=== PATIENT | female | born 1950 | race Caucasian/White ===

== ENCOUNTER 2020-03-19 06:44 | Observation (INO) ==
--- NOTE | 2020-03-14 10:27 | Anesthesiology Consultation ---
Date of Service March 14, 2020 Assessment & Plan (1) Encounter for pre-operative examination: Chart Review Chart Review: Acceptable Risk for Surgery (pending DOS labs) and Patient NOT seen in Pre Admission Testing Preop labs need updated- will order PRP, CBC with diff and PT/INR/PTT for DOS. Per nursing assessment 03/14/2020, patient resides in [facility]. Travels to [facility] for medical appointments. Wears mask and social distances. Covid test 03/12/20= negative History Surgery Operation Date: 02/21/20 07:30 Proposed Procedures p Right Total Knee Arthroplasty - Tucker Ivy DO Operation Date: 03/19/20 09:05 Proposed Procedures p Right Total Knee Arthroplasty - Tucker Ivy DO Height/Weight Height: 5 ft 1 in Weight: 78.471 kg Allergies Allergy/AdvReac Type Severity Reaction Status Date / Time Penicillins Allergy Unknown PT UNSURE Verified 03/14/20 08:36 Sulfa (Sulfonamide Allergy Unknown PT UNSURE Verified 03/14/20 08:36 Antibiotics) Rollgma-Yin-Kkx Reductase AdvReac Unknown Increased Verified 03/14/20 08:36 Inhibitor liver enzymes Medications Home Medications Medication Instructions Recorded Confirmed Last Taken aspirin 81 mg tablet,delayed 81 mg PO QAM 09/13/19 03/14/20 Unknown release ezetimibe 10 mg tablet 10 mg PO QAM 09/13/19 03/14/20 Unknown levothyroxine 112 mcg capsule 100 mcg PO QAM 09/13/19 03/14/20 Unknown metformin 1,000 mg tablet 1,000 mg PO QAM 09/13/19 03/14/20 Unknown polyethylene glycol 3350 17 17 gm PO QAM 09/13/19 03/14/20 Unknown gram/dose oral powder ibuprofen 400 - 600 mg PO UD PRN 11/03/19 03/14/20 Unknown meloxicam 15 mg tablet 15 mg PO DAILY #30 tab 11/09/19 03/14/20 Unknown benzonatate 200 mg PO BID PRN 03/14/20 03/14/20 Unknown Past Medical History Medical History Constipation Diabetes History of high cholesterol History of skin cancer RECENT, NOSE, RESECTED Hypothyroidism Osteoarthritis Past Surgical History Surgical History H/O oophorectomy History of section X4 History of colonoscopy History of esophagogastroduodenoscopy (EGD) History of hysterectomy Social History Smoking Status: Never smoker Do You Dip or Chew Tobacco: No Hx Alcohol Use: Yes Alcohol type: hard liquor alcohol intake frequency: a few times a week Hx Substance Use: No substance use type: does not use Testing Electrocardiogram Date: 11/09/19 Findings: + NSR @ (67bpm) Poor R wave progression, consider anterior NM vs lead placement vs LVH. (pt with good functional status at [facility] appt in October 2019 with no chest pain or NUÑEZ with activity) Chest X-Ray Date: 11/09/19 Findings: + NAD and + cardiomegaly (mild) Mild descending thoracic aortic tortuosity. Echocardiogram Date: 04/06/18 EF: 65-70% Normal LV size and systolic function. Normal RV size and grossly normal function. Grade 1 diastolic dysfunction. Stress Test Date: 04/06/18 Type: nuclear Resting EF: 83% No ischemia or infarction seen on SPECT imaging. Probability of CAD and ischemia relatively low. The SPECT perfusion images are considered to be within normal limits. LV wall motion is normal. EKG- non diagnostic.
--- NOTE | 2020-03-15 08:33 | History & Physical Report ---
Date of Service March 15, 2020 Assessment & Plan (1) Osteoarthritis of right knee: We will proceed with a right total knee arthroplasty. Postoperatively she will be placed on aspirin for DVT prophylaxis and kept overnight in the hospital for postoperative medical management. She plans to go to outpatient physical therapy at [facility] upon discharge. Trista is a low risk for joint replacement surgery without any major comorbidities. Present on Admission?: Yes History of Present Illness Chief Complaint: Primary osteoarthritis of the right knee Primary Care Provider: Damir Weston is a pleasant 69-year-old female who is been dealing with chronic increasing right knee pain. X-rays and clinical examination have been diagnostic for advanced osteoarthritis of the right knee. After failing extensive conservative treatment, she has elected to proceed with a right total knee arthroplasty. Allergies Allergy/AdvReac Type Severity Reaction Status Date / Time Penicillins Allergy Unknown PT UNSURE Verified 03/14/20 08:36 Sulfa (Sulfonamide Allergy Unknown PT UNSURE Verified 03/14/20 08:36 Antibiotics) Gbtoxwc-Aar-Ati Reductase AdvReac Intermediate Increased Verified 03/14/20 14:35 Inhibitor liver enzymes Home Medications Home Medications Medication Instructions Recorded Confirmed Type aspirin 81 mg tablet,delayed 81 mg PO QAM 09/13/19 03/14/20 History release ezetimibe 10 mg tablet 10 mg PO QAM 09/13/19 03/14/20 History levothyroxine 112 mcg capsule 100 mcg PO QAM 09/13/19 03/14/20 History metformin 1,000 mg tablet 1,000 mg PO QAM 09/13/19 03/14/20 History polyethylene glycol 3350 17 17 gm PO QAM 09/13/19 03/14/20 History gram/dose oral powder ibuprofen 400 - 600 mg PO UD PRN 11/03/19 03/14/20 History meloxicam 15 mg tablet 15 mg PO DAILY #30 tab 11/09/19 03/14/20 Rx benzonatate 200 mg PO BID PRN 03/14/20 03/14/20 History Past Med/Surg History Medical History Constipation Diabetes History of high cholesterol History of skin cancer RECENT, NOSE, RESECTED Hypothyroidism Osteoarthritis Surgical History H/O oophorectomy History of section X4 History of colonoscopy History of esophagogastroduodenoscopy (EGD) History of hysterectomy Social History Preferred Language: Cambodian Communication Ability: Effective Visual Impairment: No Limitations Hearing Ability: Normal Inventory Clerk Required: No Beliefs That Will Affect Care: None marital status: Current Living Situation: Spouse current occupational status: retired Other Information That Helps Us Care for You: No Feels Safe at Home: Yes Safety Concerns: Feels Safe At This Time Smoking Status: Never smoker Do You Dip or Chew Tobacco: No ; Second Hand Exposure: No ; Tobacco Cessation Education Requested by Patient: No Hx Alcohol Use: Yes Alcohol type: hard liquor Hx Substance Use: No Review of Systems Review of Systems: All systems reviewed & are unremarkable except as noted in HPI & below Physical Exam Constitutional: WD/WN, vitals as above Eyes: PERRL, conjunctivae normal, anicteric sclerae ENMT: external ear and nose normal, oropharynx normal Neck: trachea midline, no thyromegaly Respiratory: normal respiratory effort Cardiovascular: RRR, no murmur, no edema Gastrointestinal (Abdomen): normal bowel sounds, soft, nontender, no hepatosplenomegaly Musculoskeletal: On physical examination of the right knee there is a trace effusion. There is near full range of motion and no evidence of instability. There is significant tenderness palpation along the medial and lateral joint lines and over the distal femoral condyles. Psychiatric: A+Ox3, euthymic affect Results & Data Results & Data ([facility]) Diagnostic Findings Radiographs of the right knee demonstrate advanced osteoarthritis with joint space narrowing osteophyte formation and vnrj-ts-picj articulation. PG Care Time/CCT Total # of Minutes Spent Total Time Spent with Patient: Total time spent is greater than 50% in coordination of care (as documented) at patient's floor/unit and/or counseling patient: Coding Level of Care Code 48670 Initial Inpt Care Lvl 3 Diagnoses Osteoarthritis of right knee M17.11
[~2020-03-19 06:44] MED LIST: ACETAMINOPHEN 500 MG TAB PO SCH; CEFAZOLIN 1000MG 1,000 MG/7.5 ML SYR IV SCH; FAMOTIDINE 20 MG TAB PO SCH; GABAPENTIN 300 MG CAP PO SCH; LR 500ML BOLUS, THEN 15ML/HR IV SCH; LR 60ML/HR IV SCH; ROPIVACAINE 0.5% HCL/PF 150 MG, BUPIVACAINE 0.5% MPF 30 ML, EPINEPHrine 30MG/30ML (OR U... INSTIL SCH; TRANEXAMIC ACID 1,000 MG **IV Intra-op IV SCH; TRANEXAMIC ACID 1,000 MG **IV Pre-op IV SCH; dexAMETHasone 4 MG TAB PO SCH
[2020-03-19 07:32] LABS: Basophils # (auto) 0.04 K/uL (0-0.2); Basophils % (auto) 0.4 %; Eosinophils # (auto) 0.19 K/uL (0-0.5); Eosinophils % (auto) 1.9 %; Hematocrit (blood only) 40.9 % (37-47); Hemoglobin 13.3 g/dL (12.0-16.0); Immature Granulocytes # (auto) 0.03 K/uL (0.00-0.02); Immature Granulocytes % (auto) 0.3 %; Lymphocytes # (auto) 3.04 K/uL (1.2-3.4); Lymphocytes % (auto) 29.7 %; Mean Corpuscular Hemoglobin 28.2 pg (25-34); Mean Corpuscular Volume 86.7 fL (80-100); Mean Platelet Volume 10.5 fL (7.4-10.4); Monocytes # (auto) 0.67 K/uL (0.11-0.59); Monocytes % (auto) 6.5 %; Neutrophils # (auto) 6.27 K/uL (1.4-6.5); Neutrophils % (auto) 61.2 %; Platelet Count 280 K/uL (130-400); RDW Standard Deviation 44.2 fL (36.4-46.3); Red Blood Count 4.72 M/uL (4.2-5.4); White Blood Count 10.24 K/uL (4.8-10.8)
[2020-03-19] MEDS ORDERED: LIDOCAINE HCL 2% 2 ML VIAL/AMP(20MG/ML) INFIL ONE (07:35)
[2020-03-19] MEDS ORDERED: MIDAZOLAM HCL 1 MG/ML 2ML VIAL ONE ×2 (07:35)
[2020-03-19] MEDS ORDERED: PROPOFOL IV EMULSION 10 MG/ML 20 ML VIAL IV ONE (07:35)
[2020-03-19 07:43] LABS: Partial Thromboplastin Ratio 0.9; Partial Thromboplastin Time 24.7 Seconds (21.0-31.0); Prothrombin Time 10.8 Seconds (9.0-12.0)
[2020-03-19 07:44] LABS: Mean Corpuscular Hgb Conc 32.5 g/dL (32-36)
[2020-03-19] MEDS ORDERED: BUPIVACAINE/EPINEPHRINE 0.25% 1:200,000 30 ML VIAL ONE (07:46)
[2020-03-19] MEDS ORDERED: DEXAMETHASONE SOD INJ 4 MG/ML VIAL ONE (07:46)
[2020-03-19] MEDS ORDERED: BUPIVACAINE 0.5 % 5 MG/1 ML PF 10ML VIAL ONE (07:47)
[2020-03-19 07:53] LABS: Creatinine Clr Calc Pharmacy 64.5 ml/min; Est GFR (African American) 90.7; Est GFR (Non-African American) 78.2; Potassium 3.8 mmol/L (3.5-5.1)
[2020-03-19] MEDS ORDERED: CEFAZOLIN 2000MG 2,000 MG/15 ML SYR IV ONE (08:36)
--- NOTE | 2020-03-19 08:45 | History & Physical Bridge Note ---
Date of Service March 19, 2020 History & Physical Bridge Note I have examined the patient, reviewed the History & Physical and in the interval since the performance of the History & Physical I have noted the following changes of clinical significance: no changes noted
[2020-03-19] MEDS ORDERED: fentaNYL citrate 100 MCG/2 ML VIAL ONE (08:46)
[2020-03-19] MEDS ORDERED: CEFAZOLIN 2,000 MG/15 ML IV PUSH IV ONE (08:50)
[2020-03-19] MEDS ORDERED: ORTHO JOINT ANESTHETIC ONE (08:51)
[2020-03-19] MEDS ORDERED: ePHEDrine sulfate 50 MG/ML AMP IV PRN (09:22)
[2020-03-19] MEDS ORDERED: fentaNYL citrate 100 MCG/2 ML VIAL IV PRN (09:22)
[2020-03-19] MEDS ORDERED: ATROPINE SULFATE 0.1 MG/ML 10ML SYR IV PRN (09:22)
--- NOTE | 2020-03-19 10:25 | Operative Report ---
PG Post Operative Report Pre & Post Diagnosis Operation Date: 02/21/20 07:30 <No data on this case meets the specified criteria> Operation Date: 03/19/20 09:05 Pre-Op Diagnosis: Right Knee Advanced Osteoarthritis Post-Op Diagnosis: Right Knee Advanced Osteoarthritis I identified the patient and participated in the time-out.: Yes Procedure Operation Date: 02/21/20 07:30 <No data on this case meets the specified criteria> Operation Date: 03/19/20 09:05 Actual Procedures p Right Total Knee Arthroplasty(Right) - Tucker Ivy DO Surgeon Tucker Ivy DO Qa Tech Tucker Riggins PAC Estimated Blood Loss 10 Findings Consistent with Post-Op Diagnosis Specimens Right femoral and tibial bone Complications none Disposition Disposition: Recovery Room Indications Trista is a pleasant 69-year-old female who presented my office with complaints of chronic increasing right knee pain. X-rays and clinical examination were diagnostic for advanced osteoarthritis of the right knee. After failing conserv ative treatment, she elected proceed with a right total knee arthroplasty. Description of Procedure Implants used: I used a Cortes Persona total knee arthroplasty system with a size 6 standard femur, D tibia, 29 patella, and a size 11 medial congruent polyethylene bearing. All components were cemented in place with Palacos G cement. Trista arrived [facility] for the above procedure. She was seen in the preoperative holding area and the operative extremity was identified and signed. She was given a preoperative antibiotic, TXA, a spinal anesthetic and an adductor nerve block. She was taken back to the operating room and laid on the table in supine position. She was given basic sedation. The operative knee was then prepped and draped in sterile fashion. A timeout was done, and the patient and the operative extremity was properly identified. A midline incision was made directly over the patella. Dissection was taken down to the extensor mechanism. A subvastus arthrotomy was used. The medial retinaculum was released and the fat pad was mostly excised. The knee was flexed and the ACL, PCL, and meniscus were removed. A drill was sent down the center of the femoral canal followed by an intramedullary thomas. Off that thomas a distal femoral cutting block was placed. 9 mm was resected off the distal femur at 5 of valgus. A posterior referencing AP sizing guide was then placed on the distal femur. The femur measured to be a size 6. 2 drill holes were placed in 3 of external rotation. A 4-in-1 cutting block was then impacted into place. Anterior, posterior, and chamfer cuts were then made. The proximal tibia was then exposed. An external tibial alignment guide was placed. A tibial cut guide was then anchored in place to resect 2 mm off the low medial side. The proximal tibia was then resected. The tibia measured to be a size D. The tibial plate was then placed in the appropriate rotation and the tibia was drilled and punched. The posterior aspect of the knee was then opened up and any additional meniscus fragments and osteophytes were removed. Trial components were then placed. I used a size 11 medial congruent polyethylene insert. The knee was brought through a full range of motion and felt to be stable. The patella was then everted and 8 mm was resected off the posterior aspect of the patella. The patella measured to be a size 29. 3 peg holes were then drilled. A trial patella was placed. The knee was once again brought through a full range of motion and felt to be stable. Trial components were then removed. The surrounding soft tissues were injected with 100 cc of an orthopedic pain control cocktail. All components were then cemented into place with Palacos G cement. The final polyethylene insert was then snapped into place and the anterior bar was locked. Once cement was dry the tourniquet was deflated. Hemostasis was obtained. A dilute betadyne lavage was then done for 3 minutes. The joint was then irrigated with normal saline solution. The subvastus arthrotomy was then closed with #1 Vicryl suture. The skin was closed with 2-0 Vicryl, 3-0V lock suture, and chayo. A soft compressive dressing was placed. She was then transferred to a hospital bed and taken to the postanesthesia care unit in stable condition. She tolerat ed the procedure well. Tucker Riggins PA-C, was present for the entire procedure. He was critical for patient positioning, prepping, draping, retraction exposure, wound closure and application of sterile dressing. I attest to the content of the Intraoperative Record and any orders documented therein. Any exceptions are noted below.
--- NOTE | 2020-03-19 11:06 | XRay Report ---
XR knee RT 1 or 2V routine CLINICAL HISTORY: Postoperative evaluation. COMPARISON: None FINDINGS: Alignment of the total right knee arthroplasty is anatomic. There is no fracture or unexpe cted radiopaque foreign body. There are skin chayo. IMPRESSION: Expected findings following total right knee arthroplasty. ACT 112: Negative or not required by law. Electronically signed by: Barrie Monique M.D. 03/19/2020 11:05 AM
--- NOTE | 2020-03-19 11:55 | Anesthesiology Progress Note ---
Date of Service March 19, 2020 Anesthesia Post Procedure Vital Signs Vital Signs: Temp Pulse Pulse Resp BP BP Pulse Ox 03/19/20 11:45 81 18 111/66 94 03/19/20 11:35 85 20 127/66 92 03/19/20 11:25 93 H 19 114/72 92 03/19/20 11:15 36.8 C 90 20 124/66 93 03/19/20 11:05 89 19 111/62 98 03/19/20 10:55 98 H 19 125/66 99 03/19/20 10:45 88 17 117/55 L 98 03/19/20 10:38 37.1 C 89 19 99/53 L 96 03/19/20 08:21 37 C 84 18 169/101 H 100 03/19/20 07:36 36.8 C 84 18 196/81 H 99 Pain Intensity Right Knee: Pain Intensity: 8 Transfer of Care Handoff Completed per policy Notes Mental Status: alert / awake / arousable Patient Amnestic to Procedure: Yes Nausea / Vomiting: adequately controlled Pain: adequately controlled Airway Patency, RR, SpO2: stable & adequate BP & HR: stable & adequate Hydration State: stable & adequate Neuraxial Anesthesia: was administered and sensory block is resolving Anesthetic Complications: no major complications apparent and Pt Satisfied with anesthetic care
[2020-03-19] MEDS ORDERED: ONDANSETRON INJ 2 MG/ML 2 ML VIAL IV PRN (12:02)
[2020-03-19] MEDS ORDERED: METOCLOPRAMIDE HCL INJ 5 MG/ML 2 ML VIAL IV PRN (12:02)
[2020-03-19] MEDS ORDERED: bisacodyL 10 MG SUPP PR PRN (12:02)
[2020-03-19] MEDS ORDERED: MAGNESIUM HYDROXIDE SUSP 30 ML UDC PO PRN (12:02)
[2020-03-19] MEDS ORDERED: NALOXONE HCL 0.4 MG/1 ML VIAL/CARP IV PRN (12:02)
[2020-03-19] MEDS ORDERED: BENZONATATE 100 MG CAPSULE PO PRN (12:02)
[2020-03-19] MEDS: ACETAMINOPHEN 500 MG TAB PO SCH ×2 (13:47→21:11)
[2020-03-19] MEDS: SODIUM CHLORIDE 0.9% 1000ML 1,000 ML IV SCH ×2 (13:47→21:18)
[2020-03-19] MEDS: KETOROLAC TROMETHAMINE 15 MG/ML VIAL IV SCH ×3 (13:47→23:46)
[2020-03-19] MEDS: CEFAZOLIN: ALLERGY NOTED TO ORDERED MEDICATION SCH ×2 (16:02→16:03)
[2020-03-19] MEDS: CEFAZOLIN 2000MG 2,000 MG/15 ML SYR IV SCH (17:38)
[2020-03-19] MEDS ORDERED: GLUCOSE 10 TABS/TUBE PO PRN (18:30)
[2020-03-19] MEDS ORDERED: GLUCOSE 40% GEL 15 GM TUBE PO PRN (18:30)
[2020-03-19] MEDS ORDERED: GLUCAGON FOR INJ 1 MG VIAL IM PRN (18:30)
[2020-03-19] MEDS ORDERED: CARBOHYDRATES FOR HYPOGLYCEMIA PO PRN (18:30)
[2020-03-19] MEDS ORDERED: DEXTROSE 50% 50 ML SYRINGE IV PRN (18:30)
[2020-03-19] MEDS ORDERED: PHARMACY GLYCEMIC MGMT CONSULT PRN (18:33)
[2020-03-19] MEDS: INSULIN ASPART 100 UNITS/ML 3 ML PEN SC SCH ×3 (18:36→23:48)
[2020-03-19] MEDS: POLYETHYLENE (MIRALAX) 17 GM PACK PO PRN (19:20)
--- NOTE | 2020-03-19 19:29 | Pharmacy Report ---
Glycemic Control Consultation - Date of Service March 19, 2020 - Scope Scope: Glycemic Pharmacist consulted for glycemic control and to write orders per [facility] inpatient glycemic control protocol. - Objective Weight: 73.652 kg Accuchecks BSG (last 24hrs): 03/19/20 03/19/20 03/19/20 07:19 07:22 10:38 Glucose 114 H POC Glucose 122 H 129 H 03/19/20 03/19/20 03/19/20 12:14 17:06 17:08 Glucose POC Glucose 136 H 434 H* 266 H 03/19/20 17:10 Glucose POC Glucose 256 H Laboratory Data (last 24hrs): 03/19/20 07:22 Potassium 3.8 Carbon Dioxide 26 Anion Gap 9.0 Creatinine 0.77 Est Cr Clr Drug Dosing 64.5 - Recent Pertinent Medications Outpatient Anti-diabetic Regimen: * Metformin 1000 mg PO QAM * A1c = 5.5% on 11/09/2019 Risk Factors for Insulin Resistance: * Steroids: * Dexamethasone 8 mg PO Pre-op * Dexamethasone 4 mg topically * Dexamethasone 8 mg PO x 1 tomorrow morning * Recent Surgery: * POD #0 R TKA * Diet: * T2DM - Assessment & Plan Assessment & Plan: ASSESSMENT: * 69 yo F who is POD #0 s/p right total knee arthroplasty. Pharmacy is consulted for glycemic management. Patient's T2DM is well-controlled as an outpatient on Metformin monotherapy based upon October A1c. A repeat A1c has been ordered per protocol for tomorrow morning. * Pt is maintained on oral antidiabetic agents as an outpatient * Oral agents are not recommended for inpatient use d/t drug interactions, changing PO intake, and difficulty titrating for acute hyper/hypoglycemia. ADA recommends re-initiating outpatient oral agents 1-2 days prior to discharge if/when appropriate if they were held on admission. Will hold oral agents for admission and utilize SQ basal bolus insulin regimen which is the recommended regimen for inpatient glycemic control. * Patient received 8 mg of PO Dexamethasone this morning prior to surgery. She is also scheduled to get another 8 mg PO tomorrow morning. * Patient is ordered a T2DM diet. Her pre-op BSG was 122 mg/dL. Her post-op BSG was 136 mg/dL. At dinner time, her BSG was initially 434 mg/dL with repeats of 266 and 256 mg/dL. * Dexamethasone will mostly effect post-prandial BSGs and it's effects could last up to 48 hours. Given dexamethasone dose this morning and tomorrow morning, along with a diet being ordered, and post-op hyperglycemia: will order a high dose, weight-based, basal-bolus regimen. * ADA & AACE recommend a goal blood sugar range 140-180 mg/dl for the majority of critically ill & non-critically ill patients. However, more stringent targets may be selected in individual cases. Will utilize more stringent goal of 110-140mg/dl based on patient age & comorbidities. Additionally, tighter glycemic control is warranted to facilitate wound/infection healing. PLAN FOR INPATIENT GLYCEMIC CONTROL: * Holding outpatient oral diabetes medications * Basal insulin * Lantus 36 units SQ x 1 this evening followed by 10-20 units per scale SQ BID starting tomorrow AM (see eMAR) * Bolus insulin * NovoLog per scale ACHS or Q6hrs while NPO * Goal Range: Low 110 mg/dL - High 140 mg/dL * Correction Factor: 20 mg/dL/unit * Nutritional / Prandial insulin per carb ratio of 1 unit per 7 grams CHO consumed * Please note that the plan above was derived based on current level of insulin resistance and hospital stress. These recommendations are appropriate for inpatient admission only. Plan of care upon discharge will need to be reassessed to avoid potential outpatient hypo/hyperglycemia. Thank you.
[2020-03-19] MEDS ORDERED: SENNA 8.6 MG TAB PO SCH (21:00)
[2020-03-19] MEDS ORDERED: INSULIN GLARGINE SOLOSTAR 100 UNITS/ML 3 ML PEN SC SCH ×2 (21:00→21:15)
[2020-03-19] MEDS: DOCUSATE SODIUM 100 MG CAP PO SCH (21:10)
[2020-03-19] MEDS: ASPIRIN 81 MG ECTAB PO SCH (21:10)
[2020-03-20] MEDS: CEFAZOLIN 2000MG 2,000 MG/15 ML SYR IV SCH (00:30)
[2020-03-20] MEDS: INSULIN ASPART 100 UNITS/ML 3 ML PEN SC SCH ×2 (04:35→09:23)
[2020-03-20] MEDS: ACETAMINOPHEN 500 MG TAB PO SCH (05:53)
--- NOTE | 2020-03-20 06:29 | Orthopedic Progress Note ---
Date of Service March 20, 2020 Assessment & Plan (1) Status post right knee replacement: Overall she is doing very well. She is not having much pain in the right knee. She will be seen by physical therapy this morning for ambulation and range of motion exercises. She is on aspirin for DVT prophylaxis. She can be discharged home later today. She will follow-up with orthopedics in 2 weeks. Present on Admission?: Yes Subjective Trista was seen and examined at bedside this morning. Overall she is doing very well. She is not having much pain in the right knee. She was able to get some sleep last night. She has been up and ambulating to the bathroom. She has no complaints. Physical Exam Musculoskeletal: On physical examination of the right knee, the dressing is clean and dry. She has active dorsiflexion and plantarflexion of her right ankle. Results & Data ([facility]) Vital Signs (Past 12 Hours) Vital Signs Temp Pulse Resp BP Pulse Ox 03/20/20 03:58 36.4 C L 74 16 148/81 H 97 03/19/20 22:52 36.7 C 66 16 144/67 H 96 03/19/20 20:20 36.6 C 86 18 160/79 H 95 Diagnostic Findings Postoperative x-rays of the right knee show the prosthesis to be in anatomic alignment without any evidence of fracture, dislocation, or loosening. PG Care Time/CCT Total # of Minutes Spent Total Time Spent with Patient: Total time spent is greater than 50% in coordination of care (as documented) at patient's floor/unit and/or counseling patient: Coding Level of Care Code None Diagnoses Status post right knee replacement Z96.651
[2020-03-20] MEDS ORDERED: LEVOTHYROXINE SODIUM 100 MCG TABLET PO SCH (06:30)
[2020-03-20] MEDS: KETOROLAC TROMETHAMINE 15 MG/ML VIAL IV SCH ×2 (06:31→11:40)
--- NOTE | 2020-03-20 06:31 | Discharge Summary ---
Date of Service March 20, 2020 Admission HPI Per Admitting Provider Trista is a pleasant 69-year-old female who is been dealing with chronic increasing right knee pain. X-rays and clinical examination have been diagnostic for advanced osteoarthritis of the right knee. After failing exte nsive conservative treatment, she has elected to proceed with a right total knee arthroplasty. Principal Diagnosis Right knee replacement Discharge Data Allergies Allergy/AdvReac Type Severity Reaction Status Date / Time Penicillins Allergy Unknown PT UNSURE Verified 03/19/20 07:30 Sulfa (Sulfonamide Allergy Unknown PT UNSURE Verified 03/19/20 07:30 Antibiotics) Opnbexx-Rci-Clu Reductase AdvReac Intermediate Increased Verified 03/19/20 07:30 Inhibitor liver enzymes Consultations 03/19/20 12:02 Consult Case Management - Discharge Planning Routine Procedures Performed Operation Date: 02/21/20 07:30 <No data on this case meets the specified criteria> Operation Date: 03/19/20 09:05 Actual Procedures p Right Total Knee Arthroplasty(Right) - Tucker Ivy DO Ordered Studies 03/19/20 05:00 US - OR guided needle placemen Routine Hospital Course (1) Status post right knee replacement: On March 19, 2020 Trista arrived at [facility] and underwent a right total knee arthroplasty without complication. She had a spinal anesthetic. Postoperatively she was started on aspirin for DVT prophylaxis and transferred to the general orthopedic floors. Her hospital course was uneventful. On postop day #1 her H&H was stable and her pain was well controlled. She was able to participate well with physical therapy doing ambulation and range of motion exercises. She was then discharged home. She will follow-up with orthopedics in 2 weeks. Total Time Total Time Spent Total Time Spent (In Minutes): 20 Discharge Plan Discharge Items Patient Disposition: Home - Home Health Services Reason For Visit: RIGHT KNEE DEGENERATIVE JOINT DISEASE Discharge Diagnosis: Right total knee replacement Activity: As commented below Non-emergency contact: Surgeon Call non-emergency contact if: your wound has increased redness and your wound has increased drainage Follow-up/Referrals: Damir Riojas [Primary Care Provider] - Diet: Carb Consistent or DM2 Addtl Attending Provider Instructions: Activity and Therapy Recommendations: * If you are using [facility] then therapy will be provided at your home until they feel you have accomplished all of your goals. * If you are using [facility] then Physical Therapy will be provided until they feel you are ready to start Outpatient Physical Therapy. * If you are not using home therapy then Outpatient Physical Therapy should start about 3-5 days from your day of surgery. Therapy will last about 6-10 weeks * It is important not to put a pillow under your knee when you are relaxing or sleeping. It is just as important to make sure you are getting your knee perfectly straight as it is to regain your knee bend. * You were shown a series of exercises in the hospital. Do these exercises three times each day including the exercises you were shown in physical therapy. * Get up and walk several times each day. For the first four weeks, try not to stand or walk for more than one hour at a time. If you do stand or walk for more than one hour, you will not hurt anything, but your leg will likely swell. * As you feel comfortable, you may change from the walker or crutches to a cane and then to independent walking. Medications: * Narcotic You will likely be sent home from the hospital with a prescription for the narcotic pain medication that worked best throughout your stay. * Aspirin Most patients will be required to take Aspirin 81mg twice a day for 6 weeks after surgery. This is obtained [id number] and a prescription is not necessary. * Other medications may be prescribed for specific circumstances. If you have any questions, please call the office at . * Resume previous home medications unless otherwise instructed TEDs/Elastic Stockings: The white elastic stockings help limit swelling and prevent blood clots from forming in your legs.~ The more you wear them, the more they work. Wear them for six weeks. Dressing Care: Leave the Silverlon dressing in place for 7 days. After 7 days you may remove the plastic dressing. If the incision is not draining then you may leave the chayo open to air. If there is a little bit of drainage or if the chayo are getting stuck on your clothing then cover the incision with a dry dressing. The chayo will be removed at your 2 week follow-up appointment. Showering: You may shower with the Silverlon dressing in place. Let the shower spray hit the other shoulder. You can pat the plastic dry. If the dressing becomes wet underneath the plastic then simply remove the dressing. Keep the incision dry until you are 7 days out from the day of surgery. At that time you can shower with the chayo exposed. Let the soapy shower water run over the chayo and pat them dry. Do not scrub or soak the incision. Things To Watch For: * Drainage from the incision site that occurs more than one week after your surgery. * Increased redness at the incision site. * Fever above 102 degrees Fahrenheit. * Unusual chest pain or shortness of breath. * Call [facility] at with any of the above problems Follow-Up Visit: Follow-up with Dr. Ivy's PA (Tucker Riggins) 2-3 weeks after your day of surgery. He will remove your chayo and answer any questions. If you have any additional questions or concerns, Dr Ivy is usually in the office at the same time and will be available An appointment was probably scheduled when you signed-up for surgery in the office. If you have any questions call Office Instructions: More detailed instructions as well as Frequently Asked Questions were provided in a folder by our office when you signed-up for surgery. Please review these instructions when you get home. If you have any further questions or concerns, please feel free to call the office at [phone] Pending Studies at Discharge: No Stand-Alone Forms: [facility], Smoking Cessation Medications and DC Order Prescriptions: New tramadol 50 mg tablet 50 mg PO Q6H PRN (Reason: pain) Qty: 30 RF: 0 Continued levothyroxine 112 mcg capsule 100 mcg PO QAM RF: 0 metformin 1,000 mg tablet 1,000 mg PO QAM RF: 0 ezetimibe [Zetia] 10 mg tablet 10 mg PO QAM RF: 0 polyethylene glycol 3350 [Miralax] 17 gram/dose powder 17 gm PO QAM RF: 0 meloxicam [Mobic] 15 mg tablet 15 mg PO DAILY Qty: 30 RF: 3 ibuprofen 400 mg Tablet 400 - 600 mg PO UD PRN (Reason: Pain) RF: 0 benzonatate 200 mg Capsule 200 mg PO BID PRN (Reason: Cough) RF: 0 Changed aspirin [Adult Aspirin Regimen] 81 mg tablet,delayed release (DR/EC) 81 mg PO BID 42 Days Qty: 0 RF: 0 Discharge Orders: Discharge Order (Routine); Ordered 03/20/20 Ordered By: Tucker Ivy Admission Data Admit Date/Time: 03/19/20 10:39 Attending Provider: Tucker Ivy Admit Provider: Tucker Ivy Primary Care Provider: Damir Riojas Coding Level of Care Code D/C Day Management <30 mins Diagnoses Status post right knee replacement Z96.651
[2020-03-20 06:56] LABS: Estimated Average Glucose 120 mg/dl; Hemoglobin A1C 5.8 % (4.5-5.6)
[2020-03-20 06:59] LABS: Hematocrit (blood only) 31.2 % (37-47); Hemoglobin 10.3 g/dL (12.0-16.0); Mean Corpuscular Hemoglobin 29.2 pg (25-34); Mean Corpuscular Volume 88.4 fL (80-100); Mean Platelet Volume 10.8 fL (7.4-10.4); Platelet Count 211 K/uL (130-400); RDW Coefficient of Variation 13.8 % (11.5-14.5); RDW Standard Deviation 44.2 fL (36.4-46.3); Red Blood Count 3.53 M/uL (4.2-5.4); White Blood Count 14.34 K/uL (4.8-10.8)
[2020-03-20 07:05] LABS: Calcium 9.2 mg/dl (8.5-10.1); Creatinine Clr Calc Pharmacy 78.8 ml/min; Est GFR (African American) 106.5; Est GFR (Non-African American) 91.9; Potassium 3.9 mmol/L (3.5-5.1)
[2020-03-20] MEDS ORDERED: dexAMETHasone 4 MG TAB PO SCH (08:00)
--- NOTE | 2020-03-20 08:08 | Anesthesiology Progress Note ---
Date of Service March 20, 2020 Anesthesia Post Procedure Vital Signs Vital Signs: Temp Pulse Pulse Pulse Resp BP BP 03/20/20 07:08 36.5 C 51 L 18 137/76 03/20/20 03:58 36.4 C L 74 16 148/81 H 03/19/20 22:52 36.7 C 66 16 144/67 H 03/19/20 20:20 36.6 C 86 18 160/79 H 03/19/20 15:22 36.7 C 85 18 122/76 03/19/20 14:09 36.6 C 80 18 136/75 03/19/20 13:54 36.4 C L 71 18 146/78 H 03/19/20 13:23 36.7 C 77 18 117/67 03/19/20 12:29 79 16 125/76 03/19/20 12:00 36.7 C 80 18 124/66 03/19/20 11:55 36.8 C 81 20 114/57 L 03/19/20 11:45 81 18 111/66 03/19/20 11:35 85 20 127/66 03/19/20 11:25 93 H 19 114/72 03/19/20 11:15 36.8 C 90 20 124/66 03/19/20 11:05 89 19 111/62 03/19/20 10:55 98 H 19 125/66 03/19/20 10:45 88 17 117/55 L 03/19/20 10:38 37.1 C 89 19 99/53 L 03/19/20 08:21 37 C 84 18 169/101 H Pulse Ox 03/20/20 07:08 97 03/20/20 03:58 97 03/19/20 22:52 96 03/19/20 20:20 95 03/19/20 15:22 97 03/19/20 14:09 96 03/19/20 13:54 97 03/19/20 13:23 95 03/19/20 12:29 96 03/19/20 12:00 96 03/19/20 11:55 93 03/19/20 11:45 94 03/19/20 11:35 92 03/19/20 11:25 92 03/19/20 11:15 93 03/19/20 11:05 98 03/19/20 10:55 99 03/19/20 10:45 98 03/19/20 10:38 96 03/19/20 08:21 100 Pain Intensity Right Knee: Pain Intensity: 8 Notes Mental Status: alert / awake / arousable and participated in evaluation Nausea / Vomiting: adequately controlled Pain: adequately controlled Airway Patency, RR, SpO2: stable & adequate BP & HR: stable & adequate Hydration State: stable & adequate Neuraxial Anesthesia: was administered and sensory block resolved
[2020-03-20] MEDS: POLYETHYLENE (MIRALAX) 17 GM PACK PO PRN (08:31)
[2020-03-20] MEDS: ASPIRIN 81 MG ECTAB PO SCH (08:32)
[2020-03-20] MEDS: DOCUSATE SODIUM 100 MG CAP PO SCH (08:32)
[2020-03-20] MEDS ORDERED: INSULIN GLARGINE SOLOSTAR 100 UNITS/ML 3 ML PEN SC SCH ×2 (09:00→21:00)
[2020-03-20] MEDS ORDERED: MULTIVITAMIN TAB PO SCH (09:00)
[2020-03-20] MEDS ORDERED: EZETIMIBE 10 MG TABLET PO SCH (09:00)
== END 2020-03-20 13:12 | disposition home or self-care (01) ==
LOC: 3E 06:44 → ASU 06:44

== ENCOUNTER 2021-07-08 05:07 | Observation (INO) ==
--- NOTE | 2021-05-28 09:29 | PAT Medication Instructions ---
Medication Instructions Date of Service May 28, 2021 Home Medications Medication Instructions Recorded Wheeled Walker #1 ea 03/20/20 Wheelchair (Manual) #1 ea 08/20/20 ezetimibe 10 mg tablet (Zetia) 10 mg PO QAM polyethylene glycol 3350 17 gram/dose oral powder (Miralax) 17 gm PO QAM ibuprofen 400 mg tablet 400 - 600 mg PO UD PRN aspirin 81 mg tablet,delayed release (Adult Aspirin Regimen) 81 mg PO QAM levothyroxine 100 mcg tablet 100 mcg PO QAM metformin 500 mg tablet,extended release 24 hr 500 mg PO QAM ASK your surgeon for instructions ibuprofen 400 mg tablet 400 - 600 mg PO UD PRN DO NOT take the morning of surgery polyethylene glycol 3350 17 gram/dose oral powder (Miralax) 17 gm PO QAM metformin 500 mg tablet,extended release 24 hr 500 mg PO QAM Take morning of surgery With a small sip of water, OTHERWISE NOTHING TO EAT OR DRINK AFTER MIDNIGHT: ezetimibe 10 mg tablet (Zetia) 10 mg PO QAM levothyroxine 100 mcg tablet 100 mcg PO QAM aspirin 81 mg tablet,delayed release (Adult Aspirin Regimen) 81 mg PO QAM (continue as normal unless told otherwise by surgeon) Other Notes If you have any questions please call us at [phone] or [phone] or [phone] or [phone]
--- NOTE | 2021-05-31 10:29 | Anesthesiology Consultation ---
Date of Service May 31, 2021 Assessment & Plan (1) Encounter for pre-operative examination: - COVID screening: Per assessment on 05/31: Travel screen negative, no known COVID-19 positive contacts or current COVID-19 related symptoms. Patient vaccin ated. Surgeon arranging preop COVID testing. Awaiting results. - S/P Right TKA (12/21/20): SAB at L3/4 (x1 attempt) + PNB at [facility] - Post-op pain management: Patient requests limited narcotics for post-op pain management. Advised patient to discuss post-op pain management with surgeon/providers during hospital stay. Chart Review Chart Review: Acceptable Risk for Surgery and Patient seen in Pre Admission Testing Teaching & Discussion Pre-Anesthesia Teaching/Discussion Notes: Instructed NPO after midnight before surgery,except medications with 15 cc of water. Medication instructions provided according to the PAT guidelines. History Surgery Operation Date: 07/08/21 10:30 Proposed Procedures p Right Lateral Total Hip Arthroplasty - Tucker Ivy, DO Height/Weight Height: 5 ft 1 in Weight: 81.3 kg Allergies Allergy/AdvReac Type Severity Reaction Status Date / Time Penicillins Allergy Unknown Unknown Verified 05/24/21 10:52 Sulfa (Sulfonamide Allergy Unknown Unknown Verified 05/24/21 10:52 Antibiotics) Lymujcb-Qyt-Tuo Reductase AdvReac Intermediate Increased Verified 05/24/21 10:52 Inhibitor liver enzymes Medications Home Medications Medication Instructions Recorded Confirmed Last Taken ezetimibe 10 mg tablet (Zetia) 10 mg PO QAM 09/13/19 05/24/21 12/20/20 10:00 polyethylene glycol 3350 17 17 gm PO QAM 09/13/19 05/24/21 12/20/20 10:00 gram/dose oral powder (Miralax) ibuprofen 400 mg tablet 400 - 600 mg PO UD PRN 11/03/19 05/24/21 12/20/20 10:00 Wheeled Walker #1 ea 03/20/20 07/17/20 Unknown Wheelchair (Manual) #1 ea 08/20/20 Unknown aspirin 81 mg tablet,delayed 81 mg PO QAM 10/04/20 05/24/21 12/21/20 06:00 release (Adult Aspirin Regimen) levothyroxine 100 mcg tablet 100 mcg PO QAM 10/04/20 05/24/21 12/21/20 06:00 metformin 500 mg tablet,extended 500 mg PO QAM 10/04/20 05/24/21 12/20/20 10:00 release 24 hr Past Medical History Medical History Constipation chronic Diabetes mellitus, type 2 NIDDM History of skin cancer s/p excision from nose Hyperlipidemia Hypothyroidism Motion sickness Osteoarthritis Exercise / Class Metabolic Activity III < 4 Walking/Shop/Light housework (no CP or SOB with ambulation (uses cane)) Past Family History Family History Father Family history of diabetes mellitus Other No family history of adverse response to anesthesia Past Surgical History Surgical History H/O oophorectomy History of section X4 History of colonoscopy History of esophagogastroduodenoscopy (EGD) History of hysterectomy History of total knee replacement Right TKA (12/21/20): SAB at L3/4 (x1 attempt) + PNB at [facility] Status post right knee replacement Right TKA (03/19/20): SAB at L3/L4 (x1 attempt) + PNB at [facility] [place] teeth removed Past Anesthesia History No Family Hx of Anesthesia Complications and Other (Post-op constipation (has chronic constipation issues)) History of PONV No Hx of PONV and Hx of Motion Sickness Social History Smoking Status: Never smoker Do You Dip or Chew Tobacco: No Hx Alcohol Use: Yes Alcohol type: hard liquor alcohol intake frequency: holidays/special occasions only Hx Substance Use: No substance use type: does not use Review of Systems Patient denies chest pain, shortness of breath, fever, chills, cough, wheezing, palpitations. Physical Exam Vital Signs VITALS BP 166/80 P 63 TEMP 98.2 SP02 98%RA RESP 16 PHYSICAL Full cervical extension range of motion. Full TMJ range of motion. TMD 3.5 finger breaths Mallampati Score 3 (small oral opening) Dentition: missing crown (right upper side) Lungs: clear throughout to auscultation Cardiac: regular rate and rhythm, no murmurs noted Spine: normal Carotid arteries: negative bruit Extremities: no edema Thick neck Lab Results Anesthesia Preop Results Results Anesthesia Widget: WBC 7.71 K/uL (4.8-10.8) 05/31/21 Hgb 12.3 g/dL (12.0-16.0) 05/31/21 Hct 34.0 % (37-47) L 05/31/21 Plt 261 K/uL (130-400) 05/31/21 Na 139 mmol/L (136-145) 05/31/21 K 4.3 mmol/L (3.5-5.1) 05/31/21 Cl 107 mmol/L (98-107) 05/31/21 CO2 28 mmol/L (21-32) 05/31/21 BUN 14 mg/dl (7-18) 05/31/21 Creat 0.76 mg/dl (0.6-1.2) 05/31/21 Glucose Level 109 mg/dl (70-99) H 05/31/21 PT 9.8 Seconds (9.0-12.0) 05/31/21 PTT 22.5 Seconds (21.0-31.0) 05/31/21 INR 1.0 (0.9-1.1) 05/31/21 Blood Type A Positive 05/31/21 Antibody Screen NEGATIVE 05/31/21 Testing Laboratory Results 11/28/20 HGBA1C 5.5% Echocardiogram Date: 04/06/18 EF 65-70%. Grade I DD. Mild LAD. No significant valvular disease. Stress Test Date: 04/06/18 Type: nuclear Resting EF: 83% No ischemia or infarction seen on SPECT imaging. Probability of CAD and ischemia relatively low. The SPECT perfusion images are considered to be within normal limits. LV wall motion is normal. EKG- non diagnostic.
[2021-07-08] MEDS ORDERED: GABAPENTIN 300 MG CAP PO SCH (06:00)
[2021-07-08] MEDS ORDERED: TRANEXAMIC ACID 1,000 MG **IV Pre-op IV SCH (06:00)
[2021-07-08] MEDS ORDERED: LR 500ML BOLUS, THEN 15ML/HR IV SCH (06:00)
[2021-07-08] MEDS ORDERED: FAMOTIDINE 20 MG TAB PO SCH (06:00)
[2021-07-08] MEDS ORDERED: TRANEXAMIC ACID 1,000 MG **IV Intra-op IV SCH (06:00)
[2021-07-08] MEDS ORDERED: ceFAZolin 2000MG 2,000 MG/15 ML SYR IV SCH (06:00)
[2021-07-08] MEDS ORDERED: ROPIVACAINE 0.5% HCL/PF 150 MG, BUPIVACAINE 0.75% MPF 20 ML, EPINEPHrine 30MG/30ML (OR ... INSTIL SCH (06:00)
[2021-07-08] MEDS ORDERED: ACETAMINOPHEN 500 MG TAB PO SCH (06:00)
[2021-07-08] MEDS ORDERED: LR 60ML/HR IV SCH (06:00)
[2021-07-08] MEDS ORDERED: dexAMETHasone 4 MG TAB PO SCH (06:00)
--- NOTE | 2021-07-08 06:16 | History & Physical Report ---
Date of Service July 08, 2021 Assessment & Plan (1) Osteoarthritis of right hip: We will proceed with a right total hip arthroplasty. Postoperatively she will be placed on outpatient joint protocol. She will be placed on aspirin for DVT prophylaxis and seen by physical therapy at the hospital. She will then be discharged home. She will follow-up with orthopedics in 2 weeks. History of Present Illness Chief Complaint: Osteoarthritis of the right hip. Primary Care Provider: Damir Weston is a 71-year-old female who underwent a right knee replacement in February 2020. She initially did well with that. She has since been complaining of more more right knee pain. For a year we have been trying to treat her right knee without much success. She then began complaining of more more hip and groin pain. X-rays of the right hip has shown advanced osteoarthritis of the right hip. After discussions in the office, she has elected proceed with a right total hip arthroplasty. Allergies Allergy/AdvReac Type Severity Reaction Status Date / Time Penicillins Allergy Unknown Unknown Verified 07/08/21 05:41 Sulfa (Sulfonamide Allergy Unknown Unknown Verified 07/08/21 05:41 Antibiotics) Wjvupkb-JNT-PdC Reductase AdvReac Intermediate Increased Verified 07/08/21 05:41 Inhibitor liver [Bfbtpjb-Ubf-Xsh Reductase enzymes Inhibitor] Home Medications Medication Instructions Recorded Confirmed Type ezetimibe 10 mg tablet (Zetia) 10 mg PO QAM 09/13/19 07/08/21 History polyethylene glycol 3350 17 17 gm PO QAM 09/13/19 07/08/21 History gram/dose oral powder (Miralax) ibuprofen 400 mg tablet 400 - 600 mg PO UD PRN 11/03/19 07/08/21 History Wheeled Walker #1 ea 03/20/20 07/17/20 Rx Wheelchair (Manual) #1 ea 08/20/20 Rx aspirin 81 mg tablet,delayed 81 mg PO QAM 10/04/20 07/08/21 History release (Adult Aspirin Regimen) levothyroxine 100 mcg tablet 100 mcg PO QAM 10/04/20 07/08/21 History metformin 500 mg tablet,extended 500 mg PO QAM 10/04/20 07/08/21 History release 24 hr 3-in-1 Commode #1 ea 07/01/21 Rx celecoxib 200 mg capsule (Celebrex) 200 mg PO BID #28 cap 07/07/21 07/08/21 Rx hydrocodone 5 mg-acetaminophen 325 1 tab PO Q6H PRN #30 tab 07/07/21 07/08/21 Rx mg tablet ondansetron HCl 4 mg tablet 4 mg PO Q8H PRN #10 tab 07/07/21 07/08/21 Rx (Zofran) Past Med/Surg History Medical History Constipation chronic Diabetes mellitus, type 2 NIDDM History of skin cancer s/p excision from nose Hyperlipidemia Hypothyroidism Motion sickness Osteoarthritis Surgical History H/O oophorectomy History of section X4 History of colonoscopy History of esophagogastroduodenoscopy (EGD) History of hysterectomy History of total knee replacement Right TKA (12/21/20): SAB at L3/4 (x1 attempt) + PNB at [facility] Status post right knee replacement Right TKA (03/19/20): SAB at L3/L4 (x1 attempt) + PNB at [facility] [place] teeth removed Family History Father Family history of diabetes mellitus Other No family history of adverse response to anesthesia Social History Smoking Status: Never smoker 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); Do You Dip or Chew Tobacco: No; Hx Alcohol Use: Yes Alcohol type: hard liquor Hx Substance Use: No Preferred Language: [place] Communication Ability: Effective Visual Impairment: No Limitations Hearing Ability: Normal 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 Physical Exam On physical examination the right hip, she has trouble lying flat. She has significant decrease in range of motion. She has pain with internal or external rotation. Constitutional WD/WN, vitals as above Eyes PERRL, conjunctivae normal, anicteric sclerae ENMT external ear and nose normal, oropharynx normal Neck trachea midline, no thyromegaly Respiratory normal respiratory effort Cardiovascular RRR, no murmur, no edema Gastrointestinal (Abdomen) normal bowel sounds, soft, nontender, no hepatosplenomegaly Psychiatric A+Ox3, euthymic affect Results & Data Results & Data Laboratory Results . Diagnostic Findings X-rays of the right hip show advanced osteoarthritis with joint space narrowing, osteophyte formation, and wrbt-da-vtof articulation. PG Care Time/CCT Total # of Minutes Spent Total Time Spent with Patient: Total time spent is greater than 50% in coordination of care (as documented) at patient's floor/unit and/or counseling patient: Coding Level of Care Code None Diagnoses Osteoarthritis of right hip M16.11
[2021-07-08] MEDS ORDERED: PROMETHAZINE HCL 6.25 MG in SODIUM CHLORIDE 0.9% 50 ML IV PRN (06:27)
[2021-07-08] MEDS ORDERED: ONDANSETRON INJ 2 MG/ML 2 ML VIAL IV PRN ×2 (06:27→17:13)
[2021-07-08] MEDS ORDERED: ATROPINE SULFATE 0.1 MG/ML 10ML SYR IV PRN (06:27)
[2021-07-08] MEDS ORDERED: fentaNYL citrate 100 MCG/2 ML VIAL IV PRN (06:27)
[2021-07-08] MEDS ORDERED: ePHEDrine sulfate 50 MG/ML AMP IV PRN (06:27)
[2021-07-08] MEDS ORDERED: LIDOCAINE 2%/EPINEPHRINE 1:200,000 20 ML SDV ONE (06:32)
[2021-07-08] MEDS ORDERED: ORTHO JOINT ANESTHETIC ONE (06:37)
[2021-07-08] MEDS ORDERED: MIDAZOLAM HCL 1 MG/ML 2ML VIAL ONE (06:40)
[2021-07-08] MEDS ORDERED: KETAMINE 50 MG/5 ML SYRINGE ONE (07:08)
[2021-07-08] MEDS ORDERED: ONDANSETRON INJ 2 MG/ML 2 ML VIAL ONE ×2 (07:24→07:33)
[2021-07-08] MEDS ORDERED: PROPOFOL IV EMULSION 10 MG/ML 20 ML VIAL IV ONE (07:24)
[2021-07-08] MEDS ORDERED: KETOROLAC 30 MG/ML VIAL ONE (07:33)
--- NOTE | 2021-07-08 08:49 | Operative Report ---
PG Post Operative Report Pre & Post Diagnosis Operation Date: 07/08/21 07:00 Pre-Op Diagnosis: Degenerative Joint Disease Right Hip Post-Op Diagnosis: Degenerative Joint Disease Right Hip I identified the patient and participated in the time-out.: Yes Procedure Operation Date: 07/08/21 07:00 Actual Procedures p Right Lateral Total Hip Arthroplasty, Uncemented(Right) - Tucker Ivy DO Surgeon Tucker Ivy DO Loom Operator Apprentice Tucker Riggins PAC Estimated Blood Loss 150 Findings Consistent with Post-Op Diagnosis Specimens Right femoral head Complications none Disposition Disposition: Recovery Room Indications 1-year-old female who is been dealing with chronic worsening right hip pain. X- rays and clinical examination were diagnostic for advanced osteoarthritis of the right hip. After failing conservative treatment, she elected proceed with a right lateral total hip arthroplasty. Description of Procedure Implants used I used a [employer] total hip arthroplasty system with a size 0 standard offset Avenir Complete stem, a 50mm G7 cup with a 25mm screw, an E1 polyethylene liner, a 28mm ceramic head with a 50 mm dual mobility liner and a 0 neck. Trista arrived at the hospital for the above procedure. She was seen in the preoperative holding area and the operative extremity was identified and signed. She was given an epidural anesthetic, a preoperative antibiotic, and TXA. She was then taken back to the operating room and laid on the table in the supine position. She was given basic sedation. She was put into the lateral decubitus position. The hip was then prepped and draped in sterile fashion. A timeout was done and the patient and the operative extremity was properly identified. A lateral approach was used. Dissection was taken down through the fat layer to the IT band. The IT band was then incised longitudinally. The abductors were then exposed. The bursa was removed and the anterior third of the abductors were tenotomized off the greater trochanter. The capsule was then excised. The hip was then dislocated out of the joint. The femoral neck was then resected and the femoral head and neck were removed. The acetabulum was then exposed. Time was spent doing a complete circumferential capsular labral release. Sequential reaming of the acetabulum up to a size 49 reamer was done. A size 50 mm G7 cup was then impacted into place. A single 25 mm screw was placed. A 50 mm dual mobility liner was then placed. The proximal femur was then exposed. Sequential broaching up to a size 0 broach was done. Off that broach a dual mobility head was trialed with a 0 neck. The hip was then reduced. The hip was brought through a full range of motion and felt to be stable. A single flat plate x-ray was taken and was happy with the overall size and alignment of the components. The hip was then dislocated. The broach was removed. The final size 0 standard offset Avenir complete stem was then impacted into place. A 28 mm ceramic head with a dual mobility shell and a 0 neck was then impacted onto the femoral stem. The hip was then reduced. The hip was brought through a full range of motion and felt to be stable. The wound was then irrigated. The abductors were then tenodesed back to the greater trochanter with transosseous FiberWire sutures and side to side sutures. A 3-minute Betadine lavage was then done. The surrounding soft tissues were injected with 100 cc of an orthopedic pain control cocktail. The fascia was then closed with #1 Vicryl suture. The deep fat layer was closed with #1 Vicryl. Skin was closed with 2-0 Vicryl and chayo. A Silverlon dressing was placed. She was then transferred to a [facility] and taken to the postanesthesia care unit in stable condition. She tolerated the procedure well. Tucker Riggins PA-C, was present for the entire procedure. He was critical for patient positioning, prepping, draping, retraction exposure, wound closure and application of sterile dressing. I attest to the content of the Intraoperative Record and any orders documented therein. Any exceptions are noted below.
[2021-07-08] MEDS ORDERED: HYDROCODONE/ACETAMOPHEN 5/325MG TAB PO PRN ×2 (08:51→17:13)
--- NOTE | 2021-07-08 12:06 | XRay Report ---
XR hip 1V RT w pelvis CLINICAL HISTORY: IN PACU - A/P PELVIS and LATERAL HIP . Status post right hip replacement COMPARISON STUDY: No previous studies for comparison. TECHNIQUE: AP pelvis and crosstable right hip view FINDINGS: The patient is status post total hip replacement with noncemented components. The prostheti c components are in anatomic alignment with no acute abnormality seen. Skin chayo are present from the recent procedure. IMPRESSION: Status post total hip replacement. ACT 112: Negative or not required by law. Electronically signed by: Sinan Che M.D. 07/08/2021 12:05 PM
--- NOTE | 2021-07-08 12:10 | Anesthesiology Progress Note ---
Date of Service July 08, 2021 Anesthesia Post Procedure Vital Signs Vital Signs: Temp Pulse Pulse Resp BP Pulse Ox 07/08/21 10:10 36.7 C 85 18 163/84 H 96 07/08/21 09:55 36.4 C L 87 18 172/79 H 96 07/08/21 09:50 83 20 133/68 96 07/08/21 09:40 87 18 120/65 97 07/08/21 09:30 36.4 C L 88 22 133/71 97 07/08/21 09:20 83 20 152/70 H 100 07/08/21 09:10 76 20 145/73 H 100 07/08/21 09:01 36.4 C L 93 H 16 135/55 L 100 07/08/21 05:20 37.1 C 86 20 154/91 H 99 Pain Intensity Right Knee: Pain Intensity: 0 Right Hip: Pain Intensity: 0 Transfer of Care Handoff Completed per policy Notes Mental Status: alert / awake / arousable and participated in evaluation Patient Amnestic to Procedure: Yes Nausea / Vomiting: adequately controlled Pain: adequately controlled Airway Patency, RR, SpO2: stable & adequate BP & HR: stable & adequate Hydration State: stable & adequate Neuraxial Anesthesia: was administered and sensory block resolved Anesthetic Complications: no major complications apparent and Pt Satisfied with anesthetic care
--- NOTE | 2021-07-08 12:11 | Anesthesia Procedure Note ---
Date of Service July 08, 2021 Anesthesia Post Epidural Note Vital Signs Vital Signs: Temp Pulse Resp BP Pulse Ox 36.7 C 85 18 163/84 H 96 07/08/21 10:10 07/08/21 10:10 07/08/21 10:10 07/08/21 10:10 07/08/21 10:10 Pain Intensity Right Knee: Pain Intensity: 0 Right Hip: Pain Intensity: 0 Notes Mental Status: alert / awake / arousable and participated in evaluation Patient Amnestic to Procedure: Yes Nausea / Vomiting: adequately controlled Pain: adequately controlled Airway Patency, RR, SpO2: stable & adequate BP & HR: stable & adequate Hydration State: stable & adequate Neuraxial Anesthesia: was administered and sensory block resolved Anesthetic Complications: no major complications apparent and Pt Satisfied with anesthetic care Epidural: Removed without complications and With tip intact
--- NOTE | 2021-07-08 12:53 | XRay Report ---
SINGLE VIEW RIGHT HIP CLINICAL HISTORY: Intraoperative radiograph FINDINGS: A crosstable lateral portable view of the right hip is correlated with radiograph dated 05/01. A bipolar right hip arthroplasty is in place. A single cortical lag screw transfixes the acet abular cup. There is no evidence of acute fracture on this single lateral projection. IMPRESSION: Intraoperative image from a right hip arthroplasty procedure as above. Electronically signed by: Yobani Reed M.D. 07/08/2021 12:51 PM
[2021-07-08] MEDS ORDERED: NALOXONE HCL 0.4 MG/1 ML VIAL/CARP IV PRN (17:13)
[2021-07-08] MEDS ORDERED: bisacodyL 10 MG SUPP PR PRN (17:13)
[2021-07-08] MEDS ORDERED: SODIUM CHLORIDE 0.9% 1000ML 1,000 ML IV SCH (17:13)
[2021-07-08] MEDS ORDERED: HYDROmorphone INJ 0.5 MG/0.5 ML SYR IV PRN (17:13)
[2021-07-08] MEDS ORDERED: METOCLOPRAMIDE HCL INJ 5 MG/ML 2 ML VIAL IV PRN (17:13)
[2021-07-08] MEDS ORDERED: MAGNESIUM HYDROXIDE SUSP 30 ML UDC PO PRN (17:13)
[2021-07-08] MEDS: KETOROLAC TROMETHAMINE 15 MG/ML VIAL IV SCH ×2 (17:54→23:17)
[2021-07-08] MEDS: ASPIRIN 81 MG ECTAB PO SCH (20:34)
[2021-07-08] MEDS: DOCUSATE SODIUM 100 MG CAP PO SCH (20:34)
[2021-07-08] MEDS: ceFAZolin 2000MG 2,000 MG/15 ML SYR IV SCH (20:35)
[2021-07-08] MEDS ORDERED: SENNA 8.6 MG TAB PO SCH (21:00)
[2021-07-09] MEDS: ceFAZolin 2000MG 2,000 MG/15 ML SYR IV SCH (05:23)
[2021-07-09] MEDS: KETOROLAC TROMETHAMINE 15 MG/ML VIAL IV SCH (05:24)
[2021-07-09] MEDS ORDERED: LEVOTHYROXINE SODIUM 100 MCG TABLET PO SCH (06:30)
[2021-07-09] MEDS ORDERED: dexAMETHasone 4 MG TAB PO SCH (08:00)
[2021-07-09] MEDS: DOCUSATE SODIUM 100 MG CAP PO SCH (08:25)
[2021-07-09] MEDS: ASPIRIN 81 MG ECTAB PO SCH (08:25)
[2021-07-09] MEDS ORDERED: MULTIVITAMIN TAB PO SCH (09:00)
[2021-07-09] MEDS ORDERED: metFORMIN HCL ER 500 MG TABCR PO SCH (09:00)
[2021-07-09] MEDS ORDERED: EZETIMIBE 10 MG TABLET PO SCH (09:00)
--- NOTE | 2021-07-11 06:47 | Orthopedic Progress Note ---
Date of Service July 11, 2021 Assessment & Plan (1) Status post right hip replacement: Overall she is doing well. She is having too much pain in the right hip. She'll be seen by physical therapy today for ambulation and range of motion exercises. She is on aspirin for DVT prophylaxis. She can be discharged to home. She will follow-up with orthopedics in 2 weeks. Kaley Weston was seen and examined at bedside. Overall she is doing very well. She was any pain in the hip. The hip dressing was reinforced over the evening. She has been up and ambulating to the bathroom. She has no other complaints. Review of Systems All systems reviewed & are unremarkable except as noted in HPI & below. Physical Exam On physical examination of the right hip, the dressing has been reinforced. Her leg lengths are equal. She is neurovascular intact. Results & Data Results & Data Laboratory Results . Diagnostic Findings Postoperative x-rays of the right hip show the prosthesis to be in anatomic alignment without any evidence of fracture, desiccation, or loosening. PG Care Time/CCT Total # of Minutes Spent Total Time Spent with Patient: Total time spent is greater than 50% in coordination of care (as documented) at patient's floor/unit and/or counseling patient: Coding Level of Care Code 40392 Post Operative Follow-Up Diagnoses Status post right hip replacement Z96.641
--- NOTE | 2021-07-11 06:49 | Discharge Summary ---
Date of Service July 11, 2021 Admission HPI (Per Admitting) Trista is a 71-year-old female who underwent a right knee replacement in February 2020. She initially did well with that. She has since been complaining of more more right knee pain. For a year we have been trying to treat her right knee without much success. She then began complaining of more more hip and groin pain. X-rays of the right hip has shown advanced osteoarthritis of the right hip. After discussions in the office, she has elected proceed with a right total hip arthroplasty. Admission Exam (Per Admitting) On physical examination the right hip, she has trouble lying flat. She has significant decrease in range of motion. She has pain with internal or external rotation. Principal Diagnosis Same as "Discharge Diagnosis" noted below under Discharge Instructions. Discharge Exam On physical examination of the right hip, the dressing has been reinforced. Her leg lengths are equal. She is neurovascular intact. Discharge Data Procedures Performed Operation Date: 07/08/21 07:00 Actual Procedures p Right Lateral Total Hip Arthroplasty, Uncemented(Right) - Tucker Ivy DO Hospital Course (1) Status post right hip replacement: On 07/08/2021 Trista arrived at [facility] and underwent a right lateral hip replacement without complication. She had a epidural anesthetic. Postoperatively she was started on aspirin for DVT prophylaxis and part of her outpatient joint protocol. Unfortunate with physical therapy she continued to have problems ambulating throughout the day. Her knee kept giving out on her. Therapy did not feel safe sending her home and we admitted her overnight. On postop day #1 her vital signs were stable and her pain was well controlled. She was able to participate better with physical therapy. She was then discharged to home. She'll follow-up with orthopedics in 2 weeks. PG Care Time/CCT Total # of Minutes Spent Total Time Spent with Patient: Total time spent is greater than 50% in coordination of care (as documented) at patient's floor/unit and/or counseling patient: Discharge Plan Discharge Items Patient Disposition: Home - Self-Care Reason For Visit: DJD Right Hip Discharge Diagnosis: Right hip replacement Activity: As commented below Non-emergency contact: Surgeon Call non-emergency contact if: your wound has increased redness and your wound has increased drainage Follow-up/Referrals: [facility] [Outside] (as per surgeon's office) Damir Riojas [Primary Care Provider] - Diet: Regular Addtl Attending Provider Instructions: Activity and Therapy Recommendations: * If you are using [facility] then therapy will be provided at your home until they feel you have accomplished all of your goals. * If you are using [facility] then Physical Therapy will be provided until they feel you are ready to start Outpatient Physical Therapy. * If you are not using home therapy then Outpatient Physical Therapy should start about 3-5 days from your day of surgery. Therapy will last about 6-10 weeks * You were shown a series of exercises in the hospital. Do these exercises three times each day including the exercises you were shown in physical therapy. * Get up and walk several times each day.~ For the first four weeks, try not to stand or walk for more than one hour at a time. If you do stand or walk for more than one hour, you will not hurt anything, but your leg will likely swell.~~ * As you feel comfortable, you may change from the walker or crutches to a cane and~then to independent walking. Medications: * Narcotic You will likely be sent home from the hospital with a prescription for the narcotic pain medication that worked best throughout your stay. * Aspirin Most patients will be required to take Aspirin 81mg twice a day for 6 weeks after surgery. This is obtained [id number] and a prescription is not necessary. * Other medications may be prescribed for specific circumstances. If you have any questions, please call the office at . * Resume previous home medications unless otherwise instructed TEDs/Elastic Stockings: The white elastic stockings help limit swelling and prevent blood clots from forming in your legs. The more you wear them, the more they work. Wear them for six weeks. Dressing Care: Leave the Silverlon dressing in place for 7 days. After 7 days you may remove the dressing. If the incision is not draining then you may leave the chayo open to air. If there is a little bit of drainage or if the chayo are getting stuck on your clothing then cover the incision with a dry dressing. The chayo will be removed at your 2 week follow-up appointment. Showering: You may shower with the Silverlon dressing in place. Do not let the shower spray hit the dressing directly. Pat the Silverlon dressing dry. If the dressing becomes wet underneath, then simply remove the dressing. Keep the incision dry until you are 7 days out from the day of surgery. After 7 days you may remove the Silverlon dressing and shower with the chayo exposed. Let soapy water run over the chayo and pat them dry. Do not scrub or soak the incision. Things To Watch For: * Drainage from the incision site that occurs more than one week after your surgery. * Increased redness at the incision site. * Fever above 102 degrees Fahrenheit. * Unusual chest pain or shortness of breath. * Call [facility] at with any of the above problems Follow-Up Visit: Follow-up with Dr. Ivy's PA (Tucker Riggins) 2-3 weeks after your day of surgery. He will remove your chayo and answer any questions. If you have any additional questions or concerns, Dr Ivy is usually in the office at the same time and will be available An appointment was probably scheduled when you signed-up for surgery in the office. If you have any questions call Office Instructions: More detailed instructions as well as Frequently Asked Questions were provided in a folder by our office when you signed-up for surgery. Please review these instructions when you get home. If you have any further questions or concerns, please feel free to call the office at [phone] Pending Studies at Discharge: No Stand-Alone Forms: Anesthesia/Sedation, Adult, My [facility], Opioid Pain Management, Smoking Cessation Medications and DC Order Prescriptions: Continued (DME) Wheeled Walker Misc See Rx Instructions .ROUTE .MEDSUPPLY Qty: 1 RF: 0 (DME) Wheelchair (Manual) Device See Rx Instructions .MEDSUPPLY Qty: 1 RF: 0 (DME) 3-in-1 Commode Misc See Rx Instructions .MEDSUPPLY Qty: 1 RF: 0 hydrocodone-acetaminophen 5-325 mg tablet 1 tab PO Q6H PRN (Reason: pain) Qty: 30 RF: 0 celecoxib [Celebrex] 200 mg capsule 200 mg PO BID Qty: 28 RF: 0 ondansetron HCl [Zofran] 4 mg tablet 4 mg PO Q8H PRN (Reason: nausea and vomiting) Qty: 10 RF: 0 ezetimibe [Zetia] 10 mg tablet 10 mg PO QAM RF: 0 polyethylene glycol 3350 [Miralax] 17 gram/dose powder 17 gm PO QAM RF: 0 ibuprofen 400 mg Tablet 400 - 600 mg PO UD PRN (Reason: Pain) RF: 0 levothyroxine 100 mcg Tablet 100 mcg PO QAM RF: 0 metformin 500 mg Tablet Extended Release 24 Hr 500 mg PO QAM RF: 0 Changed aspirin [Adult Aspirin Regimen] 81 mg tablet,delayed release (DR/EC) 81 mg PO BID Qty: 84 RF: 0 Discharge Orders: Discharge Order (Routine); Ordered 07/08/21 Ordered By: Tucker Rodríguez/Other Patient Handouts: DVT Post Op Prevention Admission Data Admit Date/Time: 07/08/21 14:37 Attending Provider: Tucker Ivy Admit Provider: Tucker Ivy Primary Care Provider: Damir Riojas Other Providers: [facility],Home [facility] Other Interventions: Discharge Summary Assessment (RN) Last Done: 07/09/21 11:28
== END 2021-07-09 13:26 | disposition home or self-care (01) ==
LOC: 3E 05:07 → ASU 05:07